=== PATIENT | male | born 1930 | race Caucasian/White ===

== ENCOUNTER 2018-06-23 11:27 | Emergency (ER) | payer MEDICARE, MEDICAID ==
[~2018-06-23] VITALS: Ht 172.7 cm; Wt 83.9 kg
[~2018-06-23 11:27] MED LIST: Acetaminophen PO; DIOVAN PO; LIPITOR PO; Meclizine Hcl PO; Metformin Hcl PO; PANT40TA2 PO; SIME80TA45 PO
[2018-06-23] MEDS ORDERED: IV NORMAL SALINE 1000 ML BAG IV ONE ×2 (11:28→14:30)
[2018-06-23] MEDS ORDERED: PROPOFOL 200 MG/20 ML BOTTLE IV ONE (11:28)
--- NOTE | 2018-06-23 11:45 | NUR ---
PATIENT WAS BROUGHT IN BY HIS DENTIST. PATIENT IS AWAKE, ALERT AND IN NO DISTRESS. DENTIST STATES A PIECE OF DENTAL EQUIPMENT CAME OFF THE DRILL AND FELL IN PATIENTS THROAT. PLACED ON A MONITOR, IV PLACED, MD AT BEDSIDE...
[2018-06-23] MEDS ORDERED: CLOP75TA15 PO (11:52)
--- NOTE | 2018-06-23 12:40 | NUR ---
DR. RM AT BEDSIDE TALKING TO PT AND THE PT DENTIST.
[2018-06-23 12:57] LABS: BASOPHILS % (AUTO) 0.3 % (0.0-2.0); EOSINOPHILS # (AUTO) 0.1 K/uL (0.0-0.7); EOSINOPHILS % (AUTO) 1.3 % (0.0-7.0); LYMPHOCYTES # (AUTO) 1.9 K/uL (20.0-40.0); LYMPHOCYTES % (AUTO) 25.5 % (20.5-51.5); MEAN CORPUSCULAR HEMOGLOBIN 27.6 uug (23.8-33.4); MEAN CORPUSCULAR HGB CONC 33 g/dL (32.5-36.3); MEAN CORPUSCULAR VOLUME 82.9 fL (73.0-96.2); MONOCYTES # (AUTO) 0.6 K/uL (2.0-10.0); MONOCYTES % (AUTO) 8.3 % (0.0-11.0); NEUTROPHILS # (AUTO) 4.8 K/uL (1.8-8.9); NEUTROPHILS % (AUTO) 64.6 % (38.5-71.5); PLATELET COUNT (AUTO) 151 K/uL (152-348); RED BLOOD CELL COUNT(AUTO) 6.15 MIL/uL (4.06-5.63); WHITE BLOOD COUNT (AUTO) 7.4 K/uL (3.6-10.2)
[2018-06-23 13:01] LABS: CARBON DIOXIDE 24 mmol/L (21-32); CHLORIDE 102 mmol/L (98-107); CREATININE 1.3 mg/dL (0.6-1.3); GLUCOSE 165 mg/dL (74-106); POTASSIUM 3.9 mmol/L (3.5-5.1); UREA NITROGEN, BLOOD 20 mg/dL (7-18)
--- NOTE | 2018-06-23 14:33 | NUR ---
PATIENT TAKEN TO GI LAB FOR PROCEDURE. PT NPO SINCE 0800. IV PLACED. GI LAB TEAM TO START IV FLUIDS.
[2018-06-23] MEDS ORDERED: MIDAZOLAM HCL 2 MG/2 ML VIAL ONE (14:37)
[2018-06-23] MEDS ORDERED: FENTANYL CITRATE 100 MCG/2 ML AMPUL ONE (14:38)
--- NOTE | 2018-06-23 15:35 | NUR ---
PATIENT BACK FROM GI LAB. PATIENT IS AWAKE, ALERT, ORIENTED X4. DENIES CHEST PAIN OR SOB.
--- NOTE | 2018-06-23 15:47 | NUR ---
IV removed. Catheter intact and site benign. Pressure and 4x4 gauze applied to site. No bleeding noted.
--- NOTE | 2018-06-23 15:48 | NUR ---
DENTIST AT BEDSIDE.
--- NOTE | 2018-06-23 16:10 | NUR ---
DC AND FOLLOW UP INSTRUCTIONS GIVEN AND EXPLAINED TO PATIENT AND DENTIST WHO STATES HE UNDERSTANDS ALL INSTRUCTIONS
[2018-06-23] MEDS ORDERED: BENZOCAINE 20% TOPICAL SPRAY 59.2 ML MM ONE (16:15)
== END 2018-06-23 16:23 | disposition home or self-care (01) ==
LOC: ER 11:27
DX: T18.2XXA Foreign body in stomach, initial encounter (principal); I10 Essential (primary) hypertension; E78.00 Pure hypercholesterolemia, unspecified; Z95.1 Presence of aortocoronary bypass graft; X58.XXXA Exposure to other specified factors, initial encounter; Y93.89 Activity, other specified; Y92.89 Other specified places as the place of occurrence of the external cause; Y99.8 Other external cause status
CPT/HCPCS: 36415; 70360; 71046; 74021; 84443; 85025; 85730; 88342; 93005; A4217; A4663; J2250; J3010; J3490; J7030